=== PATIENT | male | born 1940 | race Two or more races ===

== ENCOUNTER 2017-05-15 17:43 | Emergency (ER) | payer OTHER ==
[~2017-05-15] VITALS: Ht 172.7 cm; Wt 96.0 kg
[2017-05-15 18:50] VITALS: BP 123/76
== END 2017-05-15 18:50 | disposition left against medical advice (07) ==
LOC: ED 17:43
DX: Z53.21 Procedure and treatment not carried out due to patient leaving prior to being seen by health care provider (principal)

== ENCOUNTER 2018-04-04 11:04 | Emergency (ER) | payer OTHER ==
[2018-04-04 11:11] VITALS: BMI 37.4
[2018-04-04 13:24] LABS: PLATELET COUNT 210 x10^3mcL (130-400)
[2018-04-04 13:25] LABS: RED CELL DISTRIBUTION WIDTH 19.1 % (11.5-14.5)
[2018-04-04 13:41] LABS: ALKALINE PHOSPHATASE 115 U/L (46-116); AST/SGOT 33 U/L (15-37); BILIRUBIN TOTAL 1.12 mg/dL (0.20-1.00); CALCIUM 9.4 mg/dL (8.5-10.1); CARBON DIOXIDE 29.4 mmol/L (21-32); CHLORIDE SERUM 100 mmol/L (98-107); FREE T4 1.25 ng/dL (0.76-1.46); GLUCOSE SERUM 91 mg/dL (74-106); POTASSIUM SERUM 4.4 mmol/L (3.5-5.1); SODIUM SERUM 137 mmol/L (136-145); TOTAL PROTEIN, SERUM 7.5 g/dL (6.4-8.2)
[2018-04-04 13:49] LABS: ALBUMIN 2.8 g/dL (3.4-5.0)
[2018-04-04 13:50] LABS: CREATININE SERUM 5.7 mg/dL (0.7-1.3)
[2018-04-04 13:57] LABS: ATYPICAL LYMPH 1 %; BAND NEUTROPHIL 1 % (0-10); BASOPHIL 0 % (0-2); MONOCYTE 2 % (0-7); SEGMENTED NEUTROPHILS 90 % (37-75)
[2018-04-04 14:00] LABS: rbc morphology (normal/abnorm) ABNORMAL (NORMAL)
[2018-04-04 14:01] LABS: PLATELET MORPHOLOGY PLATELETS DECREASED
[2018-04-04 15:01] LABS: microscopic required? YES; urine erythrocyte 3+ (NEGATIVE)
[2018-04-04 15:22] LABS: ALT/SGPT 17 U/L (16-63)
[2018-04-04 16:16] VITALS: BP 126/55
== END 2018-04-04 16:15 | disposition short-term general hospital (02) ==
LOC: ED 11:04
PROVIDERS: Emergency Medicine
DX: K92.2 Gastrointestinal hemorrhage, unspecified (principal); R79.89 Other specified abnormal findings of blood chemistry; Z95.0 Presence of cardiac pacemaker; I49.9 Cardiac arrhythmia, unspecified; N18.6 End stage renal disease
CPT/HCPCS: 83880; 84439; J2543; J3370; J7050; Q0092